=== PATIENT | female | born 1950 | race Caucasian/White ===

== ENCOUNTER 2018-10-19 13:48 | Emergency (ER) | payer OTHER, BC ==
[2018-10-19 14:18] LABS: BASOPHILS % (AUTO) 1 % (0-3); EOSINOPHILS % (AUTO) 1 % (0-9); HEMATOCRIT 42 % (35-47); HEMOGLOBIN 12.5 gm/dl (12.0-15.5); LYMPHOCYTES % (AUTO) 25.8 % (10-50); MEAN CORPUSCULAR HEMOGLOBIN 21.8 pg (27.0-32.0); MEAN CORPUSCULAR HGB CONC 29.7 gm/dl (32.0-36.0); MONOCYTES % (AUTO) 8.3 % (0-12); NEUTROPHILS % (AUTO) 63.7 % (37-80)
[2018-10-19 14:26] LABS: MEAN CORPUSCULAR VOLUME 73 fL (81-99)
[2018-10-19 14:34] LABS: CALCIUM 9.1 mg/dl (8.5-10.1); CARBON DIOXIDE 26.5 mEq/L (21-32); CREATININE 0.85 mg/dl (0.60-1.00); POTASSIUM 3.9 mMol/L (3.5-5.1)
[2018-10-19 14:40] VITALS: RESP 18
[2018-10-19 15:36] LABS: ANISOCYTOSIS SLIGHT AMT; HYPOCHROMASIA SLIGHT AMT; POIKILOCYTOSIS SLIGHT AMT
[2018-10-19 15:37] LABS: OVALOCYTES PRESENT
[2018-10-19 18:12] VITALS: BP 167/93; PULSE 76; TEMP 97.2; O2SAT 99
== END 2018-10-19 17:04 | disposition home or self-care (01) | DRG 914 ==
LOC: ED 13:48
DX: S39.92XA Unspecified injury of lower back, initial encounter (principal); V57.6XXA Passenger in pick-up truck or van injured in collision with fixed or stationary object in traffic accident, initial encounter; R40.2362 Coma scale, best motor response, obeys commands, at arrival to emergency department; R40.2142 Coma scale, eyes open, spontaneous, at arrival to emergency department; R40.2252 Coma scale, best verbal response, oriented, at arrival to emergency department
CPT/HCPCS: 36415; 70450; 71250; 72125; 74176; 80048; 85025; 99283; 99284; G0390